=== PATIENT | male | born 1940 | race Caucasian/White ===

== ENCOUNTER 2019-10-20 14:33 | Emergency (ER) | payer OTHER, SELFPAY ==
[2019-10-20 14:36] VITALS: BP 185/92; PULSE 83; RESP 16; TEMP 36.8; O2SAT 97
--- NOTE | 2019-10-20 14:40 | DI.RAD.S_ITS ---
PROCEDURE: XR CHEST 1V INDICATIONS: chest pain TECHNIQUE: One view of the chest was acquired. COMPARISON: None. FINDINGS: Surgical changes and devices: None. Lungs and pleura: Lungs are clear. No pleural effusions or pneumothorax. Mediastinum: Mediastinal contours appear normal. Heart size is normal. Bones and chest wall: No suspicious bony lesions. Overlying soft tissues appear unremarkable. IMPRESSION: Mildly reduced inspiratory volume, no acute disease, source of chest pain is not seen. Dictated by: Lalito Reza M.D. on 10/20/2019 at 15:43 Approved by: Lalito Reza M.D. on 10/20/2019 at 15:43
[2019-10-20] MEDS: ASPIRIN 81 MG CHEW TAB 324 MG PO (14:45)
[2019-10-20 14:53] VITALS: BP 168/86; PULSE 81; RESP 16; O2SAT 97
--- NOTE | 2019-10-20 15:04 | ED.CHESTPAIN ---
HPI - Chest Pain General Chief Complaint: Chest Pain Stated Complaint: Chest pains left side Time Seen by Provider: 10/20/19 14:41 Source: patient Mode of arrival: Ambulatory Limitations: no limitations History of Present Illness HPI narrative: CC:Atypical Chest Pain HPI: The patient is a 79-year-old male who states that he developed left-sided lower chest pain.. He has had no neck pain jaw pain shoulder or arm pain with this. He stated that the pain and discomfort started after he was region the back of his truck over his tool chest but did not realize that he was leaning on it or injured his ribs. He states that the pain and discomfort is a sharp pain that hurts on deep breathing twisting and bending over. He has had no cough no fall no other injury. His posterior ribs in the same area also aches. The pain is arm 5 to 6/10 in intensity. He admits to history of COPD and asthma but denies myocardial infarction congestive heart failure stroke diabetes mellitus but admits to hypertension. The patient is a former smoker drinks alcohol occasionally but does not use any drugs or smoke marijuana. He denies any headache numbness tingling paresthesias in his seizures paresis or paralysis. He has had no nasal congestion or drainage but has sinus congestion. He has had no sore throat. He denies any shortness of breath cough palpitations dizziness. He has chronic low back pain. He has had no abdominal pain nausea vomiting diarrhea his bowel movements have been normal. He has had no urinary symptoms. Related Data Home Medications Medication Instructions Recorded Confirmed aspirin [Adult Aspirin Regimen] 81 mg PO 3XW 10/20/19 10/20/19 fluticasone propion-salmeterol inh INHALATION DAILY 10/20/19 [Advair HFA] losartan 12.5 mg PO QAM 10/20/19 10/20/19 Previous Rx's Medication Instructions Recorded cyclobenzaprine 10 mg PO TID PRN #15 tab 10/20/19 hydrocodone-acetaminophen [[place]] 1 tab PO Q4-6H PRN #15 tab 10/20/19 ibuprofen 600 mg PO Q6H PRN #30 tab 10/20/19 Allergies Allergy/AdvReac Type Severity Reaction Status Date / Time [id number] Reductase AdvReac Severe Muscle Pain Verified 10/20/19 14:46 Inhibitor Review of Systems Review of Systems Narrative: Review of systems were all negative except for those mentioned in the history of present illness Patient History Social History Smoking Status: Former smoker Smoking Status: Former smoker alcohol intake frequency: 0-2 drinks per day Substance Use Type: does not use Exam Narrative Exam Narrative: PHYSICAL EXAM: CONSTITUTIONAL: Awake, Alert, Oriented, Coherent, Cooperative in NAD. Does not appear toxic or ill. HEAD: AT/NC EENT: PERRL, FROM of eyes, no discharge, no nystagmus NOSE:No epistaxis or nasal drainage MOUTH:Oral mucosa is moist and pink, posterior pharynx is without erythema or exudate. NECK: Supple, no obvious JVD, Trachea is midline without stridor, no palpable LN. SPINE: Palpation of the cervical, Lumbar or Sacral spine reveals no gross deformity or tenderness. No CVA tenderness. The patient has diffuse tenderness to palpation over the thoracic spine without any deformity THORAX: No deformity, retractions, the lower left anterior lateral ribs are tender to palpation without crepitus or subcutaneous air. This mimics the pain a shins pain and discomfort he described LUNGS: Clear, symmetrical breath sounds without respiratory distress. HEART: Normal heart tones, regular rhythm and rate without murmur. ABDOMEN: Soft, minimal tenderness in the left upper quadrant which appears to be related to the lower ribs. There is no guarding rebound or rigidity. LYMPHATIC: no palpable lymph nodes or spleen. EXTREMITIES: No edema, deformity, tenderness or cyanosis. SKIN: No rash, bruising, petechiae or purpura. NEURO: Awake, alert, oriented, conversive, cranial nerves II-XII are symmetrical , moves all 4 extremities and is ambulatory. Initial Vital Signs Initial Vital Signs: Vital Signs Temperature 98.3 F 10/20/19 14:36 Pulse Rate 83 10/20/19 14:36 Respiratory Rate 16 10/20/19 14:36 Blood Pressure 185/92 H 10/20/19 14:36 Pulse Oximetry 97 10/20/19 14:36 Course Orders Ordered: Discontinued Medications Aspirin (Aspirin Chew) 324 mg PO NOW ONE Stop: 10/20/19 14:42 Last Admin: 10/20/19 14:45 Dose: 324 mg Documented by: WILY Cyclobenzaprine HCl (Flexeril) 10 mg PO NOW ONE Stop: 10/20/19 15:04 Last Admin: 10/20/19 15:29 Dose: 10 mg Documented by: RIO Morphine Sulfate (Morphine) 4 mg IV NOW ONE Stop: 10/20/19 15:04 Last Admin: 10/20/19 15:29 Dose: 4 mg Documented by: RIO Vital Signs Vital signs: Vital Signs - 8 hr 10/20/19 14:36 10/20/19 14:53 Temperature 98.3 F Pulse Rate 83 81 Respiratory Rate 16 16 Blood Pressure 185/92 H Blood Pressure [Left Arm] 168/86 H Pulse Oximetry 97 97 MDM - Chest Pain Medical Records Data Attestation: I reviewed the patient's medical records. Lab Data Attestation: I reviewed the patient's lab results. Result diagrams: 10/20/19 14:41 10/20/19 14:41 Labs: Lab Results 10/20/19 10/20/19 10/20/19 Range/Units 14:41 14:41 14:41 WBC 8.5 (4.5-11.0) X10^3/uL RBC 5.22 (4.5-5.9) X10^6/uL Hgb 15.2 (13.5-17.5) g/dL Hct 46.5 (41-53) % MCV 89.2 (80-100) fL MCH 29.2 (26-34) PG MCHC 32.7 (30-36) % RDW 13.4 (11.6-14.8) % Plt Count 296 (150-400) X10^3/uL Neut % (Auto) 76.0 H (50-75) % Lymph % (Auto) 11.9 L (25-40) % [place] % (Auto) 7.9 (3-14) % Eos % (Auto) 3.5 (2-4) % Baso % (Auto) 0.7 (0-2) % Neut # (Auto) 6400 (3610-1613) /uL Lymph # (Auto) 1000 L (6563-6129) /uL [place] # (Auto) 700 (0-900) /uL Eos # (Auto) 300 (0-450) /uL Baso # (Auto) 100 (0-100) /uL PT 11.4 (10.1-12.7) SECONDS INR 1.0 (0.9-1.3) APTT 34 (26.4-36.2) SECONDS Sodium 140 (137-145) mmol/L Potassium 4.2 (3.4-5.1) mmol/L Chloride 106 (98-107) mmol/L Carbon Dioxide 23 (22-32) mmol/L BUN 13 (9-20) mg/dL Creatinine 1.04 (0.66-1.25) mg/dL Estimated GFR > 60.0 (>60) mL/min BUN/Creatinine Ratio 12.5 (6-22) Glucose 107 (80-110) mg/dL Calcium 10.4 H (8.4-10.2) mg/dL Total Bilirubin 0.6 (0.2-1.3) mg/dL AST 31 (17-59) IU/L ALT 24 (<50) IU/L Alkaline Phosphatase 79 (38-126) U/L Total Creatine Kinase 105 (55-170) U/L CK-MB (CK-2) 1.49 (<2.37) ng/mL CK-MB (CK-2) Rel Index 1.4 L (1.5-5.0) % Troponin I < 0.012 (0.01-0.034) ng/mL Total Protein 8.3 H (6.3-8.2) g/dL Albumin 4.7 (3.5-5.0) g/dL Globulin 3.6 (1.7-4.1) g/dL Albumin/Globulin Ratio 1.3 (1.0-2.8) Lipase 65 (23-300) U/L ECG Data Attestation: I personally reviewed and interpreted this ECG as follows: Interpretation: The patient's EKG obtained at 14:4 12:57 a.m. revealed a sinus rhythm with a ventricular rate of 83. Intervals are normal. QTC is 398 milliseconds. [place] is normal. The patient has a prominent R-wave in may have some slight left ventricular hypertrophy by voltage in the lateral precordial leads. There are no acute diagnostic ST or T-wave changes. The ST segments are nonspecific T-waves appear to be normal. Discharge Plan Departure Patient Disposition: Home Clinical Impression: Acute chest wall pain, Rib tenderness Discharge Date/Time: 10/20/19 17:14 Instructions: DI for Atypical Chest Pain, DI for Costochondritis, DI for Rib Contusion Activity Restrictions/Additional Instructions: 1. Follow-up with your primary care physician and be re-evaluated in 48-72 hours. 2. If you develop continuous chest pain that lasts longer than 15-20 minutes and is unrelieved by the medications provided or chest pain that radiates to your neck jaw or shoulder arms you need to proceed to the nearest emergency department to be evaluated. 3. If you develop racing of your heart, palpitations, dizziness lightheadedness feel faint, persistent uncontrollable vomiting you need to proceed to the emergency department. 4. Take the medications as prescribed for your pain and discomfort. Take ibuprofen 600 mg every 8-6 hours as needed for pain and discomfort and for severe pain as a rescue medicine take the [place] 5/325 1 tablet every 4-6 hours as needed. Prescriptions: New ibuprofen 600 mg tablet 600 mg PO Q6H PRN (Reason: pain) Qty: 30 RF: 0 hydrocodone-acetaminophen [[place]] 5-325 mg tablet 1 tab PO Q4-6H PRN (Reason: pain) Qty: 15 RF: 0 cyclobenzaprine 10 mg tablet 10 mg PO TID PRN (Reason: muscle spasm) Qty: 15 RF: 0 No Action aspirin [Adult Aspirin Regimen] 81 mg Tablet,Delayed Release (Dr/Ec) 81 mg PO 3XW RF: 0 losartan 25 mg tablet 12.5 mg PO QAM RF: 0 Advair HFA 230-21 mcg/actuation HFA aerosol inhaler INHALATION DAILY RF: 0
[2019-10-20 15:05] LABS: Prothrombin Time 11.4 SECONDS (10.1-12.7)
[2019-10-20 15:07] LABS: Add Manual Diff / Slide Review NO; Basophils Absolute Auto 100 /uL (0-100); Basophils Percent Auto 0.7 % (0-2); Eosinophils Absolute Auto 300 /uL (0-450); Eosinophils Percent Auto 3.5 % (2-4); Hematocrit 46.5 % (41-53); Hemoglobin 15.2 g/dL (13.5-17.5); Lymphocytes Absolute Auto 1000 /uL (1100-4500); Lymphocytes Percent Auto 11.9 % (25-40); Mean Corpuscular HGB Conc 32.7 % (30-36); Mean Corpuscular Hemoglobin 29.2 PG (26-34); Mean Corpuscular Volume 89.2 fL (80-100); Monocytes Absolute Auto 700 /uL (0-900); Monocytes Percent Auto 7.9 % (3-14); Neutrophils Absolute Auto 6400 /uL (1500-7000); Platelet Count 296 X10^3/uL (150-400); Red Blood Cell Count 5.22 X10^6/uL (4.5-5.9); Red Cell Distribution Width 13.4 % (11.6-14.8); White Blood Cell Count 8.5 X10^3/uL (4.5-11.0)
[2019-10-20 15:08] LABS: PTT Partial Thromboplastin Tim 34 SECONDS (26.4-36.2)
[2019-10-20 15:14] LABS: Alanine Aminotransferase 24 IU/L (<50); Albumin 4.7 g/dL (3.5-5.0); Albumin Globulin Ratio 1.3 (1.0-2.8); Alkaline Phosphatase 79 U/L (38-126); Aspartate Aminotransferase 31 IU/L (17-59); BUN Creatinine Ratio 12.5 (6-22); Bilirubin Total 0.6 mg/dL (0.2-1.3); Blood Urea Nitrogen 13 mg/dL (9-20); Calcium 10.4 mg/dL (8.4-10.2); Carbon Dioxide 23 mmol/L (22-32); Chloride 106 mmol/L (98-107); Creatine Kinase 105 U/L (55-170); Estimated Glomerular Filt Rate > 60.0 mL/min (>60); Globulin 3.6 g/dL (1.7-4.1); Glucose 107 mg/dL (80-110); HEMOLYSIS 16 (0-50); Lipase 65 U/L (23-300); Potassium 4.2 mmol/L (3.4-5.1); Sodium 140 mmol/L (137-145); Total Protein 8.3 g/dL (6.3-8.2)
[2019-10-20 15:25] LABS: Troponin I < 0.012 ng/mL (0.01-0.034)
[2019-10-20 15:29] LABS: CKMB % Relative Index 1.4 % (1.5-5.0); Creatine Kinase MB 1.49 ng/mL (<2.37)
[2019-10-20] MEDS: CYCLOBENZAPRINE 10 MG TABLET PO (15:29)
[2019-10-20] MEDS: MORPHINE 4 MG/ML INJ IV (15:29)
[2019-10-20 16:52] VITALS: BP 119/68; PULSE 72; RESP 16; O2SAT 95
== END 2019-10-20 17:14 | disposition home or self-care (01) ==
PROVIDERS: Emergency Provider Emergency Medicine
DX: R07.89 Other chest pain (principal); R07.81 Pleurodynia; J44.9 Chronic obstructive pulmonary disease, unspecified; I10 Essential (primary) hypertension
CPT/HCPCS: 36415; 71045; 80053; 82550; 82553; 83690; 84484; 85025; 85610; 85730; 93005; 96374; 99284; J2270